=== PATIENT | female | born 1945 | race Caucasian/White ===

== ENCOUNTER 2018-03-02 17:10 | Emergency (ER) | payer OTHER ==
[~2018-03-02] VITALS: Ht 157.5 cm; Wt 87.1 kg
--- NOTE | ~2018-03-02 | EKG ---
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: REGAN : 1945 Requested By: Sofia Cardoso Order Number: [id number] MD: Codey Gonsalves Measurements Intervals [place] Rate: 76 P: 35 MT: 155 QRS: -10 QRSD: 83 T: 35 QT: 383 QTc: 431 Interpretive Statements Sinus rhythm Low voltage, precordial leads Anteroseptal infarct, old Compared to ECG 02/02/2016 11:49:56 QT interval shortened Electronically Signed On 03-03-2018 8:18:56 CDT by Codey Gonsalves [email or web address] <ELECTRONICALLY SIGNED> By: Codey Gonsalves MD, [facility] 03/03/18 0818 11 11 Codey Gonsalves MD, [facility] /EPI
[~2018-03-02 17:10] MED LIST: ASPIRIN81 M2 PO; FLOVENT DISKUS50 MCG IH; LIPITOR 20 MG T20 M1 PO; LISINOPRIL20 MG PO; METFORMIN HCL1000 M1 PO; NASAFLO NETI P1 EACH NS; PREDNISONE 20 M20 MG PO; PROZAC20 MG PO; TRAMADOL 50 MG50 MG PO; ZPAK PO
[2018-03-02 18:45] LABS: URINE BILIRUBIN NEGATIVE (Negative); URINE BLOOD NEGATIVE (Negative); URINE CLARITY CLEAR; URINE COLOR YELLOW; URINE GLUCOSE-RANDOM* NEGATIVE (Negative); URINE KETONES NEGATIVE (Negative); URINE NITRITE-REFLEX NEGATIVE (Negative); URINE PROTEIN (DIPSTICK) NEGATIVE (Negative); URINE UROBILINOGEN 0.2 E.U./dl (0.2-1.0)
[2018-03-02 18:45] LABS: ABSOLUTE NEUTROPHILS 5.8 thou/uL (1.4-8.2); BASOPHILS 0.9 % (0.0-2.0); HEMATOCRIT 33.6 % (37.0-47.0); HEMOGLOBIN 11.1 gm/dL (12.0-15.0); LYMPHOCYTES 29.4 % (24.0-44.0); MCV 75.7 fL (80.0-100.0); MONOCYTES 7.4 % (1.0-8.0); PLATELET COUNT 277 thou/uL (150-400); POLYS 58.3 % (36.0-66.0); RBC 4.44 mil/uL (4.20-5.00); RDW 18.4 % (10.5-14.5); WBC 9.9 thou/uL (4.0-11.0)
[2018-03-02 18:48] LABS: URINE LEUKOCYTES-REFLEX TRACE (Negative)
[2018-03-02 18:54] LABS: CALCIUM 9.3 mg/dL (8.5-10.1); CREATININE 0.9 mg/dL (0.6-1.0); POTASSIUM 3.4 mmol/L (3.5-5.1)
[2018-03-02 18:59] LABS: ALBUMIN 3.5 g/dL (3.4-5.0); TOTAL BILIRUBIN 0.4 mg/dL (<0.1-1.0); TOTAL PROTEIN 7.3 g/dL (6.4-8.2)
[2018-03-02] MEDS ORDERED: PROBIOTIC1 EAC1 PO (18:59)
[2018-03-02] MEDS ORDERED: SINGULAIR 10 MG10 M1 PO (18:59)
[2018-03-02] MEDS ORDERED: NEILMED SINUS R1 KIT NASAL (18:59)
[2018-03-02] MEDS ORDERED: ZANTAC 150MG T150 MG PO (18:59)
[2018-03-02] MEDS ORDERED: ALLEGRA ALLERGY60 MG PO (19:00)
[2018-03-02 19:07] LABS: ANISOCYTOSIS 2+
[2018-03-02 19:08] LABS: OVALOCYTES OCCASIONAL
[2018-03-02 19:44] VITALS: BP 130/75
== END 2018-03-02 19:50 | disposition home or self-care (01) ==
LOC: ER 17:10
PROVIDERS: Physician Assistant
DX: E11.40 Type 2 diabetes mellitus with diabetic neuropathy, unspecified (principal); I10 Essential (primary) hypertension; E78.5 Hyperlipidemia, unspecified; Z91.012 Allergy to eggs; Z87.891 Personal history of nicotine dependence

== ENCOUNTER 2019-02-26 21:24 | Emergency (ER) | payer OTHER ==
[~2019-02-26] VITALS: Ht 157.5 cm; Wt 81.7 kg
[~2019-02-26 21:24] MED LIST changes: +ALLEGRA ALLERGY60 MG PO; +NEILMED SINUS R1 KIT NASAL; +PROBIOTIC1 EAC1 PO; +SINGULAIR 10 MG10 M1 PO; +ZANTAC 150MG T150 MG PO
[2019-02-26] MEDS ORDERED: IBUPROFEN 200200 M1 PO (21:53)
[2019-02-26] MEDS ORDERED: DULCOLAX STOOL100 M1 PO (21:57)
[2019-02-26] MEDS ORDERED: NEILMED SINUS R1 KIT NASAL (21:57)
[2019-02-26] MEDS ORDERED: ALLERGY EYE DRO10 M1 OPHTHALMIC (21:58)
[2019-02-26] MEDS ORDERED: TYLENOL325 MG PO (23:58)
[2019-02-26] MEDS ORDERED: ROBAXIN500 MG PO (23:58)
[2019-02-27 00:40] VITALS: BP 119/81
== END 2019-02-27 00:42 | disposition home or self-care (01) ==
LOC: ER 21:24
DX: S16.1XXA Strain of muscle, fascia and tendon at neck level, initial encounter (principal); M25.512 Pain in left shoulder; E11.9 Type 2 diabetes mellitus without complications; Z87.891 Personal history of nicotine dependence; Z91.012 Allergy to eggs; V89.2XXA Person injured in unspecified motor-vehicle accident, traffic, initial encounter; Y93.89 Activity, other specified; Y92.89 Other specified places as the place of occurrence of the external cause; Y99.8 Other external cause status

== ENCOUNTER 2019-03-04 19:12 | Emergency (ER) | payer OTHER ==
[~2019-03-04] VITALS: Ht 157.5 cm; Wt 81.7 kg
[~2019-03-04 19:12] MED LIST changes: +ALLERGY EYE DRO10 M1 OPHTHALMIC; +DULCOLAX STOOL100 M1 PO; +IBUPROFEN 200200 M1 PO; +ROBAXIN500 MG PO; +TYLENOL325 MG PO
[2019-03-04 23:01] VITALS: BP 150/78
== END 2019-03-04 20:52 | disposition home or self-care (01) ==
LOC: ER 19:12
DX: S06.0X0A Concussion without loss of consciousness, initial encounter (principal); F17.210 Nicotine dependence, cigarettes, uncomplicated; I10 Essential (primary) hypertension; E78.00 Pure hypercholesterolemia, unspecified; E11.9 Type 2 diabetes mellitus without complications; Z91.012 Allergy to eggs; V89.2XXA Person injured in unspecified motor-vehicle accident, traffic, initial encounter; Y92.89 Other specified places as the place of occurrence of the external cause; Y93.89 Activity, other specified; Y99.8 Other external cause status